=== PATIENT | female | born 1945 | race Caucasian/White ===

== ENCOUNTER 2017-04-03 17:05 | Emergency (ER) | payer BC, MEDICARE ==
[~2017-04-03 17:05] MED LIST: CYAN10002 IM; ERGO500017 PO; LISI-167 PO; LORA-446 PO; MULT-750 PO
[2017-04-03] MEDS ORDERED: SODIUM CHLORIDE 0.9% 1,000ML IVBOLUS ONE (17:30)
[2017-04-03] MEDS ORDERED: MORPHINE SULFATE 4 MG/ML, 1ML IVPush PRN (17:30)
[2017-04-03] MEDS ORDERED: SODIUM CHLORIDE FLUSH 10ML SYR IVF ONE (17:30)
[2017-04-03] MEDS ORDERED: ONDANSETRON 2MG/ML, 2ML IVPush ONE (17:30)
[2017-04-03] MEDS ORDERED: PLEASE ENTER HEIGHT AND WEIGHT MC SCH (18:00)
[2017-04-03 18:01] LABS: HEMATOCRIT 41.3 % (34.6-47.8); HEMOGLOBIN 13.9 g/dL (11.7-16.4)
[2017-04-03] MEDS ORDERED: MORPHINE SULFATE 4 MG/ML, 1ML ONE (18:04)
[2017-04-03] MEDS ORDERED: ONDANSETRON 2MG/ML, 2ML ONE (18:04)
[2017-04-03 18:10] LABS: ASPARTATE AMINO TRANSFERASE 20 U/L (15-37); BLOOD UREA NITROGEN 19 mg/dL (7-18)
[2017-04-03 18:17] LABS: IS PT STATUS REG ER OR PRE ER? YES
[2017-04-03] MEDS ORDERED: CLON0.25 PO (18:29)
[2017-04-03 20:03] VITALS: BP 158/81
== END 2017-04-03 20:39 | disposition home or self-care (01) ==
LOC: ED 20:31
DX: N30.90 Cystitis, unspecified without hematuria (principal); K50.90 Crohn's disease, unspecified, without complications; Z90.710 Acquired absence of both cervix and uterus; Z87.891 Personal history of nicotine dependence; Z91.018 Allergy to other foods
CPT/HCPCS: 36415; 74177; 80053; 81001; 83690; 84484; 85025; 87086; 93005; 96361; 96374; 96375; 99285; J2405; J7030

== ENCOUNTER 2017-07-09 08:51 | Emergency (ER) | payer BC, MEDICARE ==
[~2017-07-09] VITALS: Ht 154.9 cm; Wt 59.0 kg
[~2017-07-09 08:51] MED LIST changes: +CLON0.25 PO
[2017-07-09 08:52] VITALS: BP 156/80
[2017-07-09] MEDS ORDERED: ALBUTEROL/IPRATROPIUM 2.5MG/0.5MG, 3 ML ONE (09:26)
[2017-07-09] MEDS: ALBUTEROL/IPRATROPIUM 2.5MG/0.5MG, 3 ML NPPB ONE (09:26)
[2017-07-09] MEDS: DEXAMETHASONE 4 MG TABLET PO ONE (09:30)
[2017-07-09] MEDS ORDERED: DEXAMETHASONE 4 MG TABLET ONE (09:45)
== END 2017-07-09 11:14 | disposition home or self-care (01) ==
LOC: ED 11:08
DX: J20.8 Acute bronchitis due to other specified organisms (principal)
CPT/HCPCS: 71020; 94640; 99284; J7620

== ENCOUNTER → 2018-06-02 | Outpatient (CLI) | payer BC | END | disposition home or self-care (01) | LOC: RAD 08:16 | PROVIDERS: ATTEND Family Medicine | DX: M25.572 Pain in left ankle and joints of left foot (principal) ==

== ENCOUNTER → 2018-09-21 | Outpatient (CLI) | payer BC | END | disposition home or self-care (01) | LOC: CFH 10:12 | PROVIDERS: ATTEND Family Medicine | DX: Z12.31 Encounter for screening mammogram for malignant neoplasm of breast (principal); M81.0 Age-related osteoporosis without current pathological fracture; Z87.891 Personal history of nicotine dependence | CPT/HCPCS: 77063; 77067 ==

== ENCOUNTER → 2018-09-22 | Outpatient (CLI) | payer BC | END | disposition home or self-care (01) | LOC: CFH 08:31 | PROVIDERS: ATTEND Family Medicine | DX: M81.0 Age-related osteoporosis without current pathological fracture (principal); N95.9 Unspecified menopausal and perimenopausal disorder | CPT/HCPCS: 77080 ==